=== PATIENT | male | born 1950 | race Caucasian/White ===

== ENCOUNTER → 2018-08-03 | Outpatient (CLI) | payer OTHER, MEDICARE | LOC: BMCIMAGING 14:10 | PROVIDERS: ATTEND Family Medicine | DX: M54.89 Other dorsalgia (principal); R31.29 Other microscopic hematuria; R93.89 Abnormal findings on diagnostic imaging of other specified body structures; M40.204 Unspecified kyphosis, thoracic region; I51.7 Cardiomegaly; S20.212A Contusion of left front wall of thorax, initial encounter ==

== ENCOUNTER → 2018-08-04 | Outpatient (CLI) | payer OTHER, MEDICARE | LOC: FIMAGING 09:34 | PROVIDERS: ATTEND Internal Medicine | DX: R91.8 Other nonspecific abnormal finding of lung field (principal); S22.42XA Multiple fractures of ribs, left side, initial encounter for closed fracture; J98.11 Atelectasis; N20.0 Calculus of kidney ==